=== PATIENT | female | born 1995 | race Hispanic/Latino ===

== ENCOUNTER 2020-06-11 15:54 | Inpatient (IN) | payer OTHER ==
[~2020-06-11] VITALS: Ht 154.9 cm; Wt 86.2 kg
[2020-06-11] MEDS ORDERED: METHOTREXATE2.5 MG PO (16:11)
[2020-06-11] MEDS ORDERED: METHOCARBAMOL750 MG PO (16:11)
[2020-06-11] MEDS ORDERED: CEFTRIAXONE SOD 1 GM VIAL IV ONE (16:15)
--- NOTE | 2020-06-11 16:16 | Emergency Department Note ---
History of Present Illnes History of Present Illness Chief Complaint: General Medicine Complaints History of Present Illness This is a 25 year old female c/o Cough, onset today with mucus tinged possible blood, per pt. No respiratory distress noted at time of triage. Pt aaox4, ambulatory steady gait. +smoker. Pt states previous covid testing negative. She had a miscarriage 3 weeks ago supposed to take Methotrexate daily but she took only one dose last week. Historian: Patient Arrival Mode: Car Onset (how long ago): hour(s) Radiation: Reports non-radiation Severity: moderate Onset quality: gradual Duration (how long): hour(s) Timing of current episode: intermittent Progression: waxing and waning Chronicity: new Relieving factors: none Exacerbating factors: none Associated symptoms: Reports denies other symptoms, Reports other Treatments prior to arrival: none Past Medical/Family History Physician Review I have reviewed the patient's past medical and family history. Any updates have been documented here. Past Medical History Recent Fever: No Clinical Suspicion of Infectio: No New/Unexplained Change in Ment: No Past Medical History: Hypothyroidism, Migraines Other Medical History: obesity +smoker Past Surgical History: Social History Smoking Cessation: Current some day smoker Counseling Performed: No Alcohol Use: None Any Illegal Drug Use: No Physically hurt or threatened: No (home health provider) Other Any Pre-Existing Lines (PICC,: No Review of Systems Review of Systems Constitutional: Reports no symptoms EENTM: Reports no symptoms Cardiovascular: Reports no symptoms Respiratory: Reports as per HPI, Reports cough, Reports hemoptysis, Reports pain with cough, Reports dyspnea Gastrointestinal: Reports no symptoms Genitourinary: Reports no symptoms Musculoskeletal: Reports no symptoms Integumentary: Reports no symptoms Neurological: Reports no symptoms Psychological: Reports no symptoms Endocrine: Reports no symptoms Hematological/Lymphatic: Reports no symptoms Physical Exam Related Data Allergies: Coded Allergies: No Known Allergies (Unverified , 06/11/20) Triage Vital Signs Vital Signs Date Time Temp Pulse Resp B/P (MAP) Pulse Ox O2 Delivery O2 Flow Rate FiO2 06/11/20 16:05 99.0 86 16 133/70 100 Room Air Vital signs reviewed: Yes Physical Exam CONSTITUTIONAL Constitutional: Present well-developed, Present well-nourished HENT HENT: Present normocephalic, Present atraumatic, Present oropharynx clear/moist, Present nose normal HENT L/R: Present left ext ear normal, Present right ext ear normal EYES Eyes: Reports PERRL, Reports conjunctivae normal NECK Neck: Present ROM normal PULMONARY Pulmonary: Present effort normal, Present breath sounds normal, Present other (some liliya bood seen in her sputum) CARDIOVASCULAR Cardiovascular: Present regular rhythm, Present heart sounds normal, Present capillary refill normal, Present normal rate GASTROINTESTINAL Abdominal: Present soft, Present nontender, Present bowel sounds normal GENITOURINARY Genitourinary: Present exam deferred SKIN Skin: Present warm, Present dry MUSCULOSKELETAL Musculoskeletal: Present ROM normal NEUROLOGICAL Neurological: Present alert, Present oriented x 3, Present no gross motor or sensory deficits PSYCHOLOGICAL Psychological: Present mood/affect normal, Present judgement normal Results Laboratory Lab results reviewed: Yes Laboratory comments WBC 9.5 HGB 10 DDIMER normal Imaging Imaging results reviewed: Yes Impressions Chest xray nl Imaging Comments CT scan normal Assessment & Plan Medical Decision Making MDM bronchitis, hemoptysis, pna Reassessment Reassessment time: 17:21 Reassessment still coughing out fresh blood Assessment & Plan Final Impression: (1) Cough with hemoptysis (2) Miscarriage (3) Anemia Depart Disposition: ADMITTED Last Vital Signs Date Time Temp Pulse Resp B/P (MAP) Pulse Ox O2 Delivery O2 Flow Rate FiO2 06/11/20 16:05 99.0 86 16 133/70 100 Room Air Home Meds Reported Medications Levothyroxine Sodium (LEVOTHYROXINE SODIUM) 112 Mcg Tablet, 125 MCG PO DAILY, #30 TAB 06/11/20 Methotrexate Sodium (METHOTREXATE) 2.5 Mg Tablet, 2.5 MG PO DAILY, #30 TAB 06/11/20 Methocarbamol (METHOCARBAMOL) 750 Mg Tablet, 500 MG PO DAILY, #30 TAB 06/11/20 Physician Attestation Provider Attestation case discussed with Dr Hood, Dr Linda Schulte, Dr Julien (intermission coordinator), active hemoptysis, need admission, pulmonary consult, may need bronchoscopy. Assessment & Plan Reassessment Reassessment Before patient was transported, she went to the bath room and c/o vaginal bleeding and she reported that she has changed about 5 pads in 24 hours. Depart Disposition: ADMITTED Last Vital Signs Date Time Temp Pulse Resp B/P (MAP) Pulse Ox O2 Delivery O2 Flow Rate FiO2 06/11/20 19:30 91 17 108/69 100 Room Air 06/11/20 16:05 99.0 Home Meds Reported Medications Levothyroxine Sodium (LEVOTHYROXINE SODIUM) 112 Mcg Tablet, 125 MCG PO DAILY, #30 TAB 06/11/20 Methotrexate Sodium (METHOTREXATE) 2.5 Mg Tablet, 2.5 MG PO DAILY, #30 TAB 06/11/20 Methocarbamol (METHOCARBAMOL) 750 Mg Tablet, 500 MG PO DAILY, #30 TAB 06/11/20 Medications in the ED Ceftriaxone Sodium 1 gm ONCE ONCE IV ; Start 06/11/20 at 16:15; Stop 06/11/20 at 16:16; Status UNV Ceftriaxone Sodium 50 ml @ 100 mls/hr ONCE ONCE IV Last administered on 06/11/20at 16:23; Admin Dose 100 MLS/HR; Start 06/11/20 at 16:30; Stop 06/11/20 at 16:59; Status DC Ceftriaxone Sodium 1 gm STK-MED ONCE .ROUTE ; Start 06/11/20 at 16:27; Stop 06/11/20 at 16:22; Status DC PENNY MAIER MD Jun 11, 2020 16:16
[2020-06-11] MEDS ORDERED: CEFTRIAXONE SOD 1 GM VIAL ONE (16:27)
[2020-06-11] MEDS ORDERED: CEFTRIAXONE SOD 1 GM/NS 50 ML 50 ML IV ONE (16:30)
--- NOTE | 2020-06-11 16:39 | Diagnostic Imaging Report ---
Chest, 2 views, 06/11/2020. History: Cough. Comparison: None available. Findings: The cardiomediastinal silhouette and pulmonary vasculature are within normal limits. The lungs are clear without evidence of consolidation or pleural effusion. There are no acute osseous or soft tissue abnormalities. Impression: No acute cardiopulmonary abnormality. Signed by: Delgado Willard on 06/11/2020 4:35 PM
--- OUTSIDE RECORDS SUMMARY | 2020-06-11 16:50 | XMS REPORT | Continuity of Care Document ---
Author Author [facility] t Organization [facility] Address [address] [place] [address] Phone Unavailable Care Team Providers Care University Administrator Name Role Phone Hugo MAIER FRANCIS Attphys Unavailable Payers Payer Name Policy Type Policy Number Effective Date Expiration Date S ource Problems This patient has no known problems. Allergies, Adverse Reactions, Alerts This patient has no known allergies or adverse reactions. Medications This patient has no known medications. Procedures This patient has no known procedures. Encounters Start Date/Time End Date/Time Encounter Type Admission Type [facility] Care Department Encounter ID Source 2019-07-06 13:46:41 [facility]patient [id number] 2019-07-21 05:20:00 2019-07-21 03:40:00 Inpatient E [id number] 2019-07-19 20:43:00 2019-07-19 20:43:00 Emergency E [id number] 2019-06-03 10:02:00 2019-06-03 10:02:00 Outpatient [id number] Results Test Description Test Time Test Comments Results Result Comments Source CXR 2 VIEW - HOPD 2020-06-11 16:35:00 [facility] [address] [place] [id number] Patient Name: KANCHAN WEST MR #: [id number] : 1995 Age/Sex: 25/F Req #: [id number] Adm Physician: Ordered by: PENNY MAIER MD Report #: [id number] Location: [facility] Room/Bed: Procedure: [id number] HOPD/CXR 2 VIEW - HOPD Exam Date: 06/11/20 Exam Time: 1631 REPORT STATUS: Signed Chest, 2 views, 06/11/2020. History: Cough. Comparison: None available. Findings: The cardiomediastinal silhouette and pulmonary vasculature are within normal limits. The lungs are clear without evidence of consolidation or pleural effusion. There are no acute osseous or soft tissue abnormalities. Impression: No acute cardiopulmonary abnormality. Signed by: Delgado Willard on 06/11/2020 4:35 PM Dictated By: DELGADO WILLARD MD 34 Transcribed By: ALEXANDR on 06/11/201634 COPY TO: PENNY MAIER MD
--- NOTE | 2020-06-11 17:22 | NUR ---
Pt coughing up bright red colored bloody sputum. Per md, pt to admit to r/o TB. Pt denies recent fevers, wt loss, no recent incarceration, no foreign travel, no night sweats. Pt does complain of sob.
[2020-06-11] MEDS ORDERED: AZITHROMYCIN 500MG/SOD CHL 0.9% 250ML BAG IV SCH (17:30)
[2020-06-11] MEDS ORDERED: AZITHROMYCIN 500MG/NS 250 ML 250 ML ONE (17:37)
[2020-06-11] MEDS ORDERED: SODIUM CHLORIDE 0.9% 1000ML 1,000 ML ONE (17:37)
[2020-06-11] MEDS ORDERED: IOPAMIDOL 370 MG/ML 200 ML INFUS..BTL INJ ONE (17:38)
[2020-06-11] MEDS ORDERED: SODIUM CHLORIDE 0.9% 50ML 50 ML ONE (17:39)
[2020-06-11] MEDS: SODIUM CHLORIDE 0.9% 1000ML 1,000 ML IV SCH (17:41)
[2020-06-11] MEDS: AZITHROMYCIN 500MG/NS 250 ML 250 ML IV SCH (17:41)
--- OUTSIDE RECORDS SUMMARY | 2020-06-11 17:48 | XMS REPORT | Continuity of Care Document ---
Author Author [facility] t Organization [facility] Address [address] [place] [address] Phone Unavailable Care Team Providers Care Clinical Services Manager Name Role Phone Hugo MAIER FRANCIS Attphys [...] Date/Time Encounter Type Admission Type [facility] Care Department Encounter ID Source 2019-07-06 13:46:41 Inpatient [facility]SE [facility]SE [id number] [facility] 2019-07-21 05:20:00 2019-07-21 03:40:00 Inpatient E [facility]SE [facility] [id number] [facility] 2019-07-19 20:43:00 2019-07-19 20:43:00 Emergency E [facility]SE [facility] [id number] [facility] 2019-06-03 10:02:00 2019-06-03 10:02:00 Outpatient [facility]SE [id number] [facility] Results Test Description Test Time Test Comments Results Result Comments Source CXR 2 VIEW - HOPD 2020-06-11 16:35:00 [facility] [address] [place] [id number] Patient Name: KANCHAN WEST MR #: [id number] : 1995 Age/Sex: 25/F Req #: [id number] Adm Physician: Ordered by: PENNY MAIER MD Report #: [id number] Location: [facility] Room/Bed: Procedure: [id number] HOPD/CXR 2 VIEW - HOPD Exam Date: [...]
--- NOTE | 2020-06-11 18:30 | Diagnostic Imaging Report ---
EXAM: CT Chest WITH contrast (PE Protocol) INDICATION: Coughing up blood. Chest pain. COMPARISON: Chest radiograph 06/11/2020 TECHNIQUE: Chest was scanned utilizing a multidetector helical scanner from the lung apex through the level of the diaphragm after administration of IV contrast. Thin section reconstructions were obtained with special concentration on the pulmonary arteries. Coronal and sagittal reformations were obtained. Pulmonary embolism protocol was performed. IV CONTRAST: 100 mL of Isovue-370 COMPLICATIONS: None RADIATION DOSE: Total DLP: 495 mGy*cm Estimated effective dose: (DLP x 0.014 x size factor) mSv CTDIvol has been reviewed. It is below the limits set by the Radiation Protocol Committee (RPC). Dose modulation, iterative reconstruction, and/or weight based adjustment of the mA/kV was utilized to reduce the radiation dose to as low as reasonably achievable. FINDINGS: LINES/ TUBES: None. LUNGS AND AIRWAYS: No filling defect is identified within the pulmonary arteries to the segmental level. The lungs are unremarkable. Airways are normal. PLEURA: The pleural spaces are clear. HEART AND MEDIASTINUM: The thyroid gland is normal. No mediastinal, hilar or axillary lymphadenopathy. The heart is normal in size. There is no pericardial effusion. . Main pulmonary artery measures 2.8 cm in diameter and the ascending aorta measures 2.7 cm. UPPER ABDOMEN: Unremarkable BONES: The visualized bony thorax is within normal limits. SOFT TISSUES: Unremarkable. IMPRESSION: No pulmonary emboli. No consolidated pneumonia, pleural effusion or pneumothorax. Pulmonary consultation may be of benefit. Signed by: Dr. Jp Palmer M.D. on 06/11/2020 6:27 PM
--- NOTE | 2020-06-11 18:41 | NUR ---
called [facility] for transport
--- NOTE | 2020-06-11 19:12 | NUR ---
pt came out of bathroom, stating she is bleeding alot from a miscarriage that she is taking Methotrexate for. pt states [address] Maria aware, no orders recieved.
[2020-06-11] MEDS ORDERED: MORPHINE SULFATE INJ 4 MG/ML INJ 1ML IV PRN (19:30)
[2020-06-11] MEDS ORDERED: ACETAMINOPHEN 325 MG TAB PO PRN (19:30)
[2020-06-11] MEDS ORDERED: ONDANSETRON HCL INJ 2MG/ML 2ML 2 MG/ML VIAL IV PRN (19:30)
[2020-06-11] MEDS ORDERED: DIPHENHYDRAMINE HCL INJ 50 MG/ML VIAL IV PRN (19:30)
[2020-06-11] MEDS ORDERED: MORPHINE SULFATE 2 MG/ML SYR 1ML IV PRN (19:30)
--- NOTE | 2020-06-11 19:40 | NUR ---
Will given update on pt and vag bleeding
[2020-06-11 20:00] VITALS: BP 114/71
[2020-06-11 21:00] VITALS: BP 114/71
[2020-06-11] MEDS ORDERED: HYDROCODONE/APAP 5MG-325MG TAB PO PRN (21:00)
--- NOTE | 2020-06-11 21:00 | NUR ---
Patient received via stretcher from [facility]. AAO x 4. Patient complained of abdominal pain (03/09). Respirations even and non-labored. Admission history obtained. Initial physical assessment performed. Patient oriented to room, call light and plan of care. Safety measures in place. Patient instructed to call for assistance when needed. Call light within reach.
--- NOTE | 2020-06-11 21:02 | NUR ---
Dr. Kim paged regarding [employer]EL[employer] consult. Dr. Silke Martin covering for Dr. Allan gave new orders: US transvaginal (Stat), NPO satus, Type and Screen, Beta HCG and keep record of soaked pads by the hour.
--- NOTE | 2020-06-11 21:02 | NUR ---
Dr. Mildred Schulte here to see patient.
[2020-06-11] MEDS ORDERED: MISOPROSTOL 100 MCG TAB RC ONE ×2 (21:45→22:45)
--- NOTE | 2020-06-11 21:45 | NUR ---
Patient off floor for US transvaginal.
--- NOTE | 2020-06-11 21:46 | Diagnostic Imaging Report ---
EXAM: First Trimester Obstetric Pelvic Ultrasound INDICATION: ^miscarriage, vaginal bleeding ^[id number] ^[id number] COMPARISON: None. TECHNIQUE: Grayscale transverse and sagittal transvaginal images were obtained of the pelvis FINDINGS: Uterus: Orientation: Normal Size: 10.3 x 4.6 x 5.5 cm, enlarged Mass: None Cervix: Normal Elongated saclike structure within lower uterine segment. No pole visualized. Yolk sac is visualized. Ovaries are obscured by bowel gas, limiting evaluation. Cul-de-sac: No free fluid IMPRESSION: Elongated lower uterine segment gestational sac without pole, highly suggestive of in progress. Recommend also correlation with serial beta hCG and if indicated short-term follow-up with ultrasound. Signed by: Dr. Gray Jasmine MD on 06/11/2020 9:42 PM
[2020-06-11] MEDS ORDERED: LEVOTHYROXINE112 MCG PO (22:03)
[2020-06-11] MEDS: MORPHINE SULFATE 2 MG/ML SYR 1ML IV PRN (22:18)
--- NOTE | 2020-06-11 22:45 | NUR ---
Patient bleeding profusely vaginally . New order for Misoprostol 800 mcg RC x [address] Martin. Per MD, call if patient has more than 4 pads in 2 hours. Will continue to monitor patient.
[2020-06-11] MEDS: IBUPROFEN 600 MG TAB PO PRN (23:12)
[2020-06-11] MEDS ORDERED: MISOPROSTOL 100 MCG TAB PO ONE (23:45)
[2020-06-11 23:46] LABS: HEMOGLOBIN 8.2 g/dL (12.0-16.0)
--- NOTE | 2020-06-12 01:02 | NUR ---
Dr. Martin changed administration of Misoprostol 800 mcg from RC to PO. Medication given SL. Patient instructed to keep soaked pads in bin. Will continue to monitor bleeding rate in patient.
[2020-06-12 04:00] VITALS: BP 95/54
--- NOTE | 2020-06-12 05:32 | Consultation ---
DATE OF CONSULTATION: 06/11/2020 PULMONARY CRITICAL CARE CONSULTATION: CHIEF COMPLAINT: Hemoptysis. HISTORY OF PRESENT ILLNESS: The patient is a 25-year-old woman. Apparently, she had a spontaneous . She went to a soundscriber mechanic and received some medications. She did not have a D and C. Several days later, she noticed some coughing. Today, she coughed up some bright red blood. She came to the emergency department. She had an x-ray and a CT scan of the chest that were both normal. She denies fevers or dyspnea. After arriving to the hospital, she started having lower abdominal cramping and vaginal bleeding. She has not had any further hemoptysis. PAST MEDICAL HISTORY: 1. Spontaneous . 2. No prior asthma or respiratory problems. 3. No prior history of cardiac disease. PAST SURGICAL HISTORY: Noncontributory. ALLERGIES: NO KNOWN DRUG ALLERGIES. SOCIAL HISTORY: The patient smokes about a cigarette per two day. She has never vape. She does not use any illicit drugs. She is not a drinker. FAMILY HISTORY: Noncontributory. REVIEW OF SYSTEMS: CONSTITUTIONAL: There is no fever. She has no headache. She has no neck pain. She is not having any chest pain. She does not complain of any dyspnea. She did have some hemoptysis as noted above. ABDOMEN: She has some lower abdominal pain. EXTREMITIES: no leg edema or calf tendernes PHYSICAL EXAM: VSS No facial swelling no nodes clear BS bilaterally RRR. nl S1, S2 ABD: soft; some lower abdominal tenderness no leg edema IMP 1. Spontaneous 2. One episode of hemoptysis with normal CT scan PLAN: 1. antibiotics 2. Hold off on bornchoscopy or further evaluation unless hemoptysis returns 3. check plat count and coagulation parameters 4. proof reader consult MD NEGRITO Zimmer/BRYCE /[id number] ANDREINA
--- NOTE | 2020-06-12 05:35 | NUR ---
Head Nurse called with critical lab value of hemoglobin of 6.8. Dr. James Martin notified. Order given to give 2 units of PRBC.
[2020-06-12] MEDS: SODIUM CHLORIDE 0.9% 1000ML 1,000 ML IV SCH ×3 (06:29→16:16)
[2020-06-12] MEDS: IBUPROFEN 600 MG TAB PO PRN (06:31)
--- NOTE | 2020-06-12 06:41 | NUR ---
Patient's noted with low blood pressure (84/49) with a HR of 84. Dr. Elias Hood paged. Awaiting call back.
--- NOTE | 2020-06-12 07:00 | NUR ---
Patient resting comfortably. No acute distress noted. Walking rounds done. Shift report given to oncoming nurse.
[2020-06-12] MEDS ORDERED: SODIUM CHLORIDE 0.9% 250ML 250 ML ONE ×2 (07:32→10:14)
[2020-06-12 07:41] LABS: ANION GAP 9.9 mmol/L (8-16); BLOOD UREA NITROGEN 8 mg/dL (7-26); BUN/CREATININE RATIO 12 (6-25); CARBON DIOXIDE 22 mmol/L (22-29); CHLORIDE 110 mmol/L (98-107); CREATININE, SERUM 0.69 mg/dL (0.57-1.11); EST GLOMERULAR FILTRATION RATE > 60 ML/MIN (60-); GLUCOSE 104 mg/dL (74-118); POTASSIUM 3.9 mmol/L (3.5-5.1); SODIUM 138 mmol/L (136-145)
[2020-06-12 07:58] LABS: BASOPHILS % 0.4 % (0.0-1.0); EOSINOPHILS % 0.2 % (0.0-6.0); LYMPHOCYTES # (AUTO) 2.7 (1.0-3.2); LYMPHOCYTES % 24.3 % (18.0-39.1); MEAN CORPUSCULAR HEMOGLOBIN 24.7 pg (28-32); MEAN CORPUSCULAR HGB CONC 31.2 g/dL (31-35); MEAN CORPUSCULAR VOLUME 79.3 fL (81-99); MONOCYTES # (AUTO) 0.5 (0.2-0.8); NEUTROPHILS # (AUTO) 7.9 (2.1-6.9); NEUTROPHILS % 70.7 % (38.7-80.0); PLATELET COUNT 317 x10e3/uL (140-360); RED BLOOD COUNT 2.75 x10e6/uL (3.6-5.1); RED CELL DISTRIBUTION WIDTH 15.2 % (11.7-14.4)
[2020-06-12 08:00] LABS: HEMATOCRIT 21.8 % (34.2-44.1); HEMOGLOBIN 6.8 g/dL (12.0-16.0)
[2020-06-12 08:06] VITALS: BP 83/44
[2020-06-12 08:38] LABS: INR 1.12; PARTIAL THROMBOPLASTIN TIME 33.8 seconds (23.8-35.5)
[2020-06-12 08:53] VITALS: BP 95/54
[2020-06-12] MEDS: FAMOTIDINE 20 MG/2 ML VIAL IV SCH ×2 (10:08→16:16)
--- NOTE | 2020-06-12 10:39 | NUR ---
pt resting. no s/s distress. currently hypotensive. beginning admin blood 1 of 2 units
[2020-06-12 12:13] VITALS: BP 99/58
--- NOTE | 2020-06-12 13:16 | NUR ---
H&P Chief Complaint - coughing up blood History of Present Illness Ms Cancino is a 25 yo F with no significant PMH who presented with complaints of hemoptysis and vaginal bleeding. Patient first noted hemoptysis at home the day prior to presentation. Did not have any cough or fevers prior, no shortness of breath. As for her vaginal bleeding, 3 weeks ago she was seen by her solar sales specialist in clinic for a miscarriage, given Cytotec to complete the miscarriage as well as methotrexate. She passed a big blood clot 3 weeks ago and then just had some spotting until yesterday when she passed another big blood clot. She presented to ED for both of these bleeding complaints. Initial hgb stable, vitals stable. CXR and CT chest normal with no cavitary lesions or consolidations. On the floor, patient had continued vaginal bleeding and passed several large clots, had drop in hgb to 6.8 and prbc transfusion was started. Her BP became soft but responded to fluids and PRBC. Home Medications levothyroxine Review of Systems General: No fever, chills, or fatigue HEENT: Denies visual changes, hearing loss, congestion, rhinorrhea, or bleeding Respiratory: +hemoptysis; No SOB, cough Cardiovascular: No chest pain, palpitations, BRISCOE, orthopnea, PND, leg edema, or claudication Gastrointestinal: No nausea, vomiting, diarrhea, constipation, or abdominal pain G/U: Denies dysuria, hematuria, incontinence, or discharge Musculoskeletal: No myalgias or arthralgias Neurological: No syncope, seizures, headaches, changes in sensation, or weakness Hematology: No bruising, bleeding, or lymphadenopathy Endocrine: No heat or cold intolerance, hair loss, or weight changes Skin: No rashes, sores, itching, bruising Psychiatric: Denies depression or elevated mood, or anxiety Past Medical History hypothyroidism Past Surgical History none Family History family history of colon cancer, dementia, hypertension, and diabetes mellitus Social History Does not drink or do drugs; but occasionally smokes cigarettes Allergies no known drug allergies Physical Exam Vitals: Temp: 98.1P: 80BP: 99/58RR: 17SpO2 100General Appearance: The patient is alert, oriented and in no acute distress. Appears euvolemic. Skin: Warm and hydrated without any rash. HEENT: Head is normocephalic, atraumatic. Nontender sinuses. Pupils are equal and reactive. The nares are patent. Oropharynx is moist and clear without lesions. Neck: Supple without lymphadenopathy. No JVD. 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 Normal S1 and S2 without S3/S4. No murmurs, rubs or gallops. Peripheral pulses symmetric +2. Respiratory / Chest: No crackles or wheezes are heard. Symmetric breath sounds. Preserved chest expansion. Abdomen: Soft, nontender, nondistended with good bowel sounds heard. No clinical organomegaly. Renal: There is no costovertebral angle tenderness. Extremities: Without cyanosis, clubbing or edema. Preserved ROM. Neurological: Gross nonfocal. Patient oriented x 3. Cranial nerves II - XII Grossly intact. DTRs +2. MS: 5/5 globally. Assessment/Plan #Hemoptysis - unclear cause; imaging thusfar negative - Dr Schulte consulted, appreciate assistance; for now no need for bronch; will continue antibiotics for empiric coverage of pneumonia vs bronchitis which could be the cause - PTT/INR, fibrinogen, D-dimer normal; platelet count normal - since admission, only 1x hemoptysis in ED; none since; will continue to monitor - H&H q6h, transfuse for hgb <7; so far has received 2u PRBC #Vaginal bleeding #Miscarriage - Vaginal U/S with retained products yesterday however vaginal bleeding has slowed down as she may have completed the - repeat vaginal and pelvic u/s today to re-assess for complete - Dr Johnston following, appreciate assistance I have spent 70 minutes [id number] time with patient, reviewing clinical data, and formulating plan of treatment. Wade Hood MD Internal Medicine
--- NOTE | 2020-06-12 14:28 | Diagnostic Imaging Report ---
HISTORY : Miscarriage COMPARISON : 06/11/2020 Comment: Ultrasound examination of the pelvis was performed transvaginally. The uterus is homogeneous in echotexture. The uterus measures 8.5 x 5.2 x 4.1 cm. Heterogeneous debris is identified throughout the endometrial complex and lower uterine segment consistent with a miscarriage in process. The right ovary measures 2.6 x 1.9 x 2.2 cm. The left ovary is not well visualized There is no evidence of fluid in the cul-de-sac. IMPRESSION : Heterogeneous vascular debris within the endometrial cavity and lower uterine segment is consistent with a miscarriage in progress. Signed by: Jorge Luis Reza MD on 06/12/2020 2:25 PM
[2020-06-12] MEDS ORDERED: CEFTRIAXONE SOD 1 GM/NS 50 ML 50 ML IV SCH (16:00)
[2020-06-12] MEDS: AZITHROMYCIN 500MG/NS 250 ML 250 ML IV SCH (18:06)
[2020-06-12] MEDS: MORPHINE SULFATE 2 MG/ML SYR 1ML IV PRN (18:27)
[2020-06-12 18:44] LABS: BASOPHILS # (AUTO) 0.1 (0.0-0.1); BASOPHILS % 0.8 % (0.0-1.0); EOSINOPHILS # (AUTO) 0.1 (0.0-0.4); EOSINOPHILS % 1.2 % (0.0-6.0); HEMATOCRIT 27.3 % (34.2-44.1); HEMOGLOBIN 8.5 g/dL (12.0-16.0); LYMPHOCYTES # (AUTO) 3.5 (1.0-3.2); LYMPHOCYTES % 38.7 % (18.0-39.1); MEAN CORPUSCULAR HEMOGLOBIN 25.8 pg (28-32); MEAN CORPUSCULAR HGB CONC 31.1 g/dL (31-35); MONOCYTES # (AUTO) 0.6 (0.2-0.8); MONOCYTES % 6.9 % (4.4-11.3); NEUTROPHILS # (AUTO) 4.8 (2.1-6.9); NEUTROPHILS % 52.1 % (38.7-80.0); PLATELET COUNT 285 x10e3/uL (140-360); RED BLOOD COUNT 3.29 x10e6/uL (3.6-5.1)
[2020-06-12 20:00] VITALS: BP 93/56
--- NOTE | 2020-06-12 20:03 | NUR ---
pt resting comfortably in bed no signs of distress no complaints at this time
[2020-06-12 20:36] VITALS: BP 89/56
[2020-06-13] VITALS: BP 100/62
[2020-06-13] MEDS: IBUPROFEN 600 MG TAB PO PRN (00:44)
[2020-06-13] MEDS: SODIUM CHLORIDE 0.9% 1000ML 1,000 ML IV SCH ×2 (03:00→08:50)
[2020-06-13 04:00] VITALS: BP 95/50
[2020-06-13 05:05] LABS: BASOPHILS # (AUTO) 0.1 (0.0-0.1); BASOPHILS % 0.8 % (0.0-1.0); EOSINOPHILS # (AUTO) 0.2 (0.0-0.4); EOSINOPHILS % 1.6 % (0.0-6.0); HEMATOCRIT 26.1 % (34.2-44.1); HEMOGLOBIN 8.1 g/dL (12.0-16.0); LYMPHOCYTES # (AUTO) 4.2 (1.0-3.2); LYMPHOCYTES % 45.8 % (18.0-39.1); MEAN CORPUSCULAR HEMOGLOBIN 25.5 pg (28-32); MEAN CORPUSCULAR VOLUME 82.1 fL (81-99); MONOCYTES # (AUTO) 0.6 (0.2-0.8); MONOCYTES % 6.6 % (4.4-11.3); NEUTROPHILS # (AUTO) 4.1 (2.1-6.9); NEUTROPHILS % 44.9 % (38.7-80.0); PLATELET COUNT 296 x10e3/uL (140-360); RED BLOOD COUNT 3.18 x10e6/uL (3.6-5.1); RED CELL DISTRIBUTION WIDTH 15.2 % (11.7-14.4)
[2020-06-13 05:19] LABS: INR 1.07; PROTHROMBIN TIME 14.5 seconds (11.9-14.5)
[2020-06-13 05:26] LABS: BLOOD UREA NITROGEN 8 mg/dL (7-26); BUN/CREATININE RATIO 10 (6-25); CALCIUM 8.1 mg/dL (8.4-10.2); CARBON DIOXIDE 17 mmol/L (22-29); CHLORIDE 114 mmol/L (98-107); CREATININE, SERUM 0.77 mg/dL (0.57-1.11); EST GLOMERULAR FILTRATION RATE > 60 ML/MIN (60-); GLUCOSE 78 mg/dL (74-118); SODIUM 140 mmol/L (136-145)
[2020-06-13 05:29] LABS: PARTIAL THROMBOPLASTIN TIME 136.6 seconds (23.8-35.5)
[2020-06-13] MEDS ORDERED: LEVOTHYROXINE SODIUM 112 MCG TAB PO SCH (06:00)
--- NOTE | 2020-06-13 06:01 | NUR ---
brody MANCIA (Elias Hood) r/e abnormal lab (PTT 136.6)
[2020-06-13 06:54] LABS: EOSINOPHILS % (MANUAL) 1 % (0-7); LYMPHOCYTES % (MANUAL) 57 % (19-48); MONOCYTES % (MANUAL) 3 % (3.4-9.0); NEUTROPHILS % (MANUAL) 39 % (40-74)
[2020-06-13 06:55] LABS: ANISOCYTOSIS SLIGHT; PLATELET ESTIMATE ADEQUATE; PLATELET MORPHOLOGY COMMENT NORMAL; RBC MORPHOLOGY COMMENT NORMAL
--- NOTE | 2020-06-13 07:00 | NUR ---
RECEIVED BEDSIDE SHIFT REPORT FROM OFF GOING NIGHT NURSE. RESPIRATIONS EVEN AND NONLABORED. PATIENT IN STABLE CONDITION, NO S/S OF DISTRESS NOTED. PATIENT ABLE TO VOICE NEEDS. IV FLUIDS INFUSING, SITE ASYMPTOMATIC AND PATENT, TRANSPARENT DRESSING C/D/I. BED IN LOWEST POSITION AND LOCKED, SIDE RAILS X2, NONSKID SOCKS APPLIED. CALL LIGHT WITHIN REACH.
[2020-06-13 07:52] VITALS: BP 95/52
[2020-06-13 08:00] VITALS: BP 95/52
[2020-06-13] MEDS: FAMOTIDINE 20 MG/2 ML VIAL IV SCH (08:51)
[2020-06-13 09:32] LABS: BILIRUBIN,DIRECT 0.1 mg/dL (0.0-0.5)
[2020-06-13 12:00] VITALS: BP 100/58
[2020-06-13 12:17] LABS: HEMATOCRIT 25.7 % (34.2-44.1); HEMOGLOBIN 8.5 g/dL (12.0-16.0)
[2020-06-13] MEDS ORDERED: ONDANSETRON HCL 4 MG ORAL DISINTEGRATING TAB PO PRN (13:30)
--- NOTE | 2020-06-13 13:38 | NUR ---
Discharge Summary Patient: Suri Cancino Admission date: 06/12/2020 Discharge date: 06/13/2020 Attending physician: Wade Hood MD Consultation: Dr Johnston, Gynecology; Dr Schulte, Pulmonology Admitting Diagnosis: Hemoptysis, Vaginal bleeding, Miscarriage Discharge Diagnosis: Delayed or excessive hemorrhage following incomplete spontaneous (ICD 10 = O03.1), Hemoptysis (R04.2) Procedures: None Hospital Course: Ms Cancino is a 25 yo F with no significant PMH who presented with complaints of hemoptysis and vaginal bleeding. Patient first noted hemoptysis at home the day prior to presentation and had 1 episode of small volume hemoptysis this admi ssion in the ER and had none since. CXR and CT chest normal with no cavitary lesions or consolidations. She did began passing large amounts of blood clots on admission and hgb dropped to 6.8, required 2u PRBC transfusion and corrected her hgb to 8.5 which remained stable for >24hrs. She had transvaginal U/S x2 which both showed miscarriage in process with evidence of retained products. The bleeding had slowed down and became only spotting on her pads on day of discharge. Patient was advised on strict return to ED precautions if her bleeding worsens or she becomes light headed, dizzy, or weak. Dr Johnston (Outside Property Agent) evaluated patient and agreed to plan, stated the patient did not require D&C at this time and can follow up with her frit burner (this is the patient's request). Dr Schulte (pulm) evaluated patient and looked over imagin g, agreed that at this time there would not need to be any intervention or bronchoscopy and to watch for further hemoptysis. Patient received short course of antibiotics during this stay however there was no laboratory or radiological evidence of pneumonia or bronchitis, so antibiotics were stopped on discharge. During this stay, her coagulation factors were all within normal limits, except for 1 erroneously elevated PTT which was rechecked promptly and found to be normal. Physical Exam: Vitals: Temp: 98.1P: 85BP: 100/58RR: [id number] General Appearance: The patient is alert, oriented and in no acute distress. Appears euvolemic. Skin: Warm and hydrated without any rash. HEENT: Head is normocephalic, atraumatic. Nontender sinuses. Pupils are equal and reactive. The nares are patent. Oropharynx is moist and clear without lesions. Neck: Supple without lymphadenopathy. No JVD. Thyroid NV/HOUSING MANAGEMENT REPRESENTATIVE Heart / Cardiovascular: Regular rate and rhythm. Normal S1 and S2 without S3/S4. No murmurs, rubs or gallops. Peripheral pulses symmetric +2. Respiratory / Chest: No crackles or wheezes are heard. Symmetric breath sounds. Preserved chest expansion. Abdomen: Soft, nontender, nondistended with good bowel sounds heard. No clinical organomegaly. Renal: There is no costovertebral angle tenderness. Extremities: Without cyanosis, clubbing or edema. Preserved ROM. Neurological: Gross nonfocal. Patient oriented x 3. Cranial nerves II - XII Grossly intact. DTRs +2. MS: 5/5 globally. Discharge medications: levothyroxine Discharge plan: Condition on discharge: good Activity: as tolerated Diet: regular diet Follow-up: follow-up in my clinic in 1 week and follow-up with your frit burner in 2 days Time spent on discharge: 45 minutes
--- NOTE | 2020-06-13 14:13 | NUR ---
PATIENT DISCHARGED HOME. PATIENT OFF THE UNIT @ 1400 VIA WHEELCHAIR ACCOMPANIED TO THE LOBBY BY PCT. PATIENT IN STABLE CONDITION, NO S/S OF DISTRESS NOTED. NO PAIN VOICED.IV ACCESS REMOVED WITH TIP INTACT. ALL PERSONAL ITEMS TAKEN WITH THE PATIENT. DISCHARGE TEACHING AND INSTRUCTION GIVEN TO THE PATIENT. PATIENT VERBALIZED UNDERSTANDING.
[2020-06-13] MEDS ORDERED: FAMOTIDINE 20 MG TAB PO SCH (16:30)
== END 2020-06-13 14:58 | disposition home or self-care (01) | DRG 779 ==
LOC: FSED 16:27 → ERHOLD 17:19 → MED/SURG2 20:03 → OBSVTOIN 06-12 12:20
PROC: 30233N1 Transfusion of Nonautologous Red Blood Cells into Peripheral Vein, Percutaneous Approach (ICD-10-PCS; principal; 2020-06-12)
DX: O03.1 Delayed or excessive hemorrhage following incomplete spontaneous abortion (principal); R04.2 Hemoptysis; D64.9 Anemia, unspecified; E03.9 Hypothyroidism, unspecified; Z11.59 Encounter for screening for other viral diseases; Z80.0 Family history of malignant neoplasm of digestive organs; Z82.49 Family history of ischemic heart disease and other diseases of the circulatory system; Z83.3 Family history of diabetes mellitus; Z84.89 Family history of other specified conditions
CPT/HCPCS: 36415; 71046; 71260; 76817; 76830; 80048; 80053; 80076; 81003; 81025; 84702; 85014; 85018; 85025; 85379; 85384; 85610; 85730; 86021; 86850; 86900; 86920; 99284; G0378; J0456; J0696; J2270; J2405; J7030; J7050; P9016; Q9967